=== PATIENT | male | born 1970 | race Caucasian/White ===

== ENCOUNTER 2016-11-12 08:19 | Emergency (ER) | payer SELFPAY ==
--- NOTE | ~2016-11-12 | CR72 ---
[facility]. [facility] A Service of [facility] & [facility] [place] RADIOLOGY TEXT RESULTS PATIENT: YODIT AGRAWAL LOCATION: SED : 74 UNIT #: [id number] AGE: [address]: Christelle Vanessa MD SEX: M ORDER DR: [id number] [place] [id number] E MR#: [id number] Acc #: [id number] NAME: YODIT AGRAWAL : 1970 SEX: M STUDY DATE/TIME: 11/12/2016 8:56 UNIT: SED ROOM: STUDY DESCRIPTION: CR Chest Single View Portable Attending Physician: Christelle Vanessa M.D. Ordering Physician: Christelle Vanessa M.D. Primary Care Physician: Primary Care Physician No MEDICAL IMAGING REPORT This report is preliminary unless electronic signature is present. EXAM Portable chest INDICATION Weakness this morning. Cough and congestion as well. COMPARISON 10/31/2012. FINDINGS There is bilateral interstitial and vague airspace opacities. This may represent pulmonary edema or could be infectious or inflammatory. Correlate clinically. Heart size stable. IMPRESSION Bilateral interstitial opacities and vague airspace opacities. This may be pulmonary edema or could be an infectious or inflammatory process. Correlate clinically. Dictated by... Sherwin Mahoney M.D. THIS IS AN ELECTRONICALLY VERIFIED REPORT Sherwin Mahoney M.D. at 11/13/2016 7:32 AM EFRAÍN/alton TD: 11/12/2016 10:45 JOB #: [id number] MEDICAL IMAGING REPORT Page 1 of 1
--- NOTE | ~2016-11-12 | EKG ---
PATIENT: YODIT AGRAWAL UNIT #: [id number] Ventricular Rate: 65 BPM Atrial Rate: 65 BPM P-R Interval: 136 ms QRS Duration: 96 ms Q-T Interval: 406 ms QTC Calculation(Bezet): 422 ms P [place]: 55 degrees Calculated R [place]: 54 degrees Calculated T [place]: 17 degrees Diagnosis Line: Normal sinus rhythm Diagnosis Line: Normal ECG Diagnosis Line: When compared with ECG of 01-NOV-2012 06:13, Diagnosis Line: No significant change was found Diagnosis Line: Confirmed by ML MURDOCK MD ([id number]) on Diagnosis Line: 11/13/2016 8:37:12 AM INTERPRETING MD: COLLETTE JAMES
[~2016-11-12 08:19] MED LIST: ASPIRIN PO; ASPIRIN81 M2 PO; FLEXERIL PO; FLEXERIL10 MG PO; IBUPROFEN PO; IBUPROFEN800 MG PO; LIPITOR40 MG PO; NAPROSYN250 M1 PO; NO MEDICATIONS; PEN-VEE K PO; PRILOSEC20 M1 PO; VICODIN 5/500 T1 TAB PO; VOLTAREN75 MG PO
[2016-11-12] MEDS ORDERED: NO MEDICATIONS (08:32)
[2016-11-12 09:15] LABS: BASOPHIL# 0.1 X10e3 (0-0.3); BASOPHIL% 0.5 % (0-2.5); EOSINOPHIL# 0.1 X10e3 (0-0.7); EOSINOPHIL% 1.3 % (0.0-7.0); HEMATOCRIT 46.7 % (38.0-50.0); HEMOGLOBIN 16.2 gm/dL (13.0-16.0); LYMPHOCYTE# 1.6 X10e3 (1.0-3.5); LYMPHOCYTE% 16.5 % (17.0-45.0); MEAN CELL VOLUME 90.4 FL (83-96); MEAN CORPUSCULAR HEMOGLOBIN 31.3 PG (28-34); MEAN CORPUSCULAR HGB CONC 34.6 g/dL (30-36); MEAN PLATELET VOLUME 8.9 FL (6.5-11.5); MONOCYTE# 0.5 X10e3 (0-1.0); MONOCYTE% 5.2 % (3.0-12.0); NEUTROPHIL# 7.6 X10e3 (1.5-7.1); NEUTROPHIL% 76.5 % (40-75); PLATELET COUNT 183 X10e3 (140-420); RED BLOOD COUNT 5.16 X10e (3.90-5.60); RED CELL DISTRIBUTION WIDTH 13.5 % (11.0-15.5); WHITE BLOOD COUNT 9.9 X10e3 (4.0-10.5)
[2016-11-12 09:18] LABS: DIFF IND NO
[2016-11-12 09:26] LABS: POC - CKMB <1.0 ng/mL (0.0-7.9); POC - TROPONIN <0.05 ng/mL (<=0.05)
[2016-11-12 09:37] LABS: ALBUMIN SERUM 4.3 g/dL (3.5-5.0); BILIRUBIN, DIRECT 0.1 mg/dL (0.0-0.2); BILIRUBIN,INDIRECT 0.3 mg/dL (0.0-0.9); BILIRUBIN,TOTAL 0.4 mg/dL (0.2-2.0); BUN/CREATININE RATIO 12.22; CALCIUM SERUM 8.8 mg/dL (8.4-10.2); CREATININE SERUM 0.9 mg/dL (0.6-1.4); GLOM FILT RATE Estimated 104.2 mL/min (>60); POTASSIUM 4.2 mmol/L (3.5-5.1); PROTEIN TOTAL SERUM 7.2 g/dL (6.0-8.3)
[2016-11-12 10:00] LABS: URINE APPEARANCE CLEAR; URINE BILIRUBIN NEG (NEG); URINE BLOOD NEG (NEG); URINE COLOR YELLOW; URINE GLUCOSE NEG (NORM); URINE KETONE NEG (NEG); URINE LEUKOCYTE ESTERASE NEG (NEG); URINE NITRATE NEG (NEG); URINE PROTEIN NEG (NEG); URINE SPECIFIC GRAVITY <=1.005 (1.003-1.035); URINE UROBILINOGEN 0.2 MG/DL (NORM)
[2016-11-12 10:02] LABS: MICRO INDICATED? NO; URINE SOURCE CLEAN CATCH
[2016-11-12 10:10] LABS: AMPHETAMINE NEG (NEG); BARBITURATES NEG (NEG); BENZODIAZEPINES NEG (NEG); COCAINE NEG (NEG); MARIJUANA NEG (NEG); OPIATES NEG (NEG); TRICYCLIC ANTIDEPRESSANTS NEG (NEG); U METHADONE NEG (NEG)
== END 2016-11-12 11:59 | disposition home or self-care (01) ==
LOC: SED 08:19
PROVIDERS: Emergency Medicine
DX: R53.81 Other malaise (principal); J18.9 Pneumonia, unspecified organism; F17.210 Nicotine dependence, cigarettes, uncomplicated
CPT/HCPCS: 36415; 71010; 80048; 80076; 80307; 81003; 82553; 82947; 83735; 83880; 84443; 84484; 85025; 93005; 99284